=== PATIENT | male | born 1985 | race Caucasian/White ===

== ENCOUNTER 2023-10-18 22:34 | Emergency (ER) | payer MEDICAID | END 2023-10-18 23:03 | disposition home or self-care (01) | LOC: FB.ED 22:34 | DX: S60.455A Superficial foreign body of left ring finger, initial encounter (principal); M25.542 Pain in joints of left hand; W45.8XXA Other foreign body or object entering through skin, initial encounter | CPT/HCPCS: 64450; 99283-25 ==